=== PATIENT | female | born 1945 | race African-American/Black ===

== ENCOUNTER → 2017-06-29 | Outpatient (CLI) | payer OTHER ==
[~2017-06-29] VITALS: Ht 160 cm; Wt 89.8 kg
[~2017-06-29] MED LIST: ACETAMINOPHEN-1 EAC1 PO; DILTIAZEM HCL120 M1 PO; NABUMETONE 500500 M1 PO; TRIAMTERENE/HCT1 CA1 PO
--- NOTE | ~2017-06-29 | HPC ---
[facility] [address] [address] PAIN MANAGEMENT CONSULTATION Name: FE BLANK Room #: REG TIFF Curry#: [id number] Admission: 06/29/17 Attend Phys: Everardo Edgar DO Discharge: Date of : 45 Report #: [id number] THIS REPORT FOR: //name// CC: Everardo WILLIAM DATE OF SERVICE: 06/29/2017 REFERRING PHYSICIAN: Breanna William M.D. CHIEF COMPLAINT: Axial back pain. HISTORY OF PRESENT ILLNESS: As you know, the patient is a 72-year-old female with long-standing history of axial back pain. The patient indicates pain began in 2012. No inciting injury or trauma. She indicates pain is constant, describes the pain as aching and pounding, places current pain score 4/10, daily average of 5/10, worst pain has been 10/10. The patient has not had any imaging completed. There is no x-ray imaging and no MRI, though it was reported that the patient did have MRI written for, but has not undergone this procedure as she is "worried about the procedure itself". She indicates that she had injections approximately 2 years ago with a pain service out of [employer], who provided what appears to be lumbar epidural injections x 2. She had transient improvement in symptoms. She indicates today pain is exacerbated with lifting and improves with sitting. The pain begins in low back, radiates to the upper buttock area, but not in a dermatomal distribution. She has been referred to our clinic to discuss treatment options for axial back pain. She is receiving Tylenol No. 3 through her primary care and indicates that she is seeing benefit with its use. PAST MEDICAL HISTORY: 1. Hypertension. 2. Diabetes mellitus type 2. 3. Persistent low back pain without radicular symptoms. 4. Osteoarthritis. PAST SURGICAL HISTORY: Hysterectomy. SOCIAL HISTORY: The patient denies tobacco, alcohol, IV or illicit drug use. She is retired, retired years ago. She is not in litigation in regards to pain. She is unaccompanied today. REVIEW OF SYSTEMS: Positive for eye disease, shortness of breath with walking or lying flat, frequent urination, nocturia, low back pain, hypertension and osteoarthritis. All other review of systems negative per 12-point review of systems, other than those listed in the history of present illness. [address] [address] PAIN MANAGEMENT CONSULTATION Name: FE BLANK Room #: REG TIFF Curry#: [id number] Admission: 06/29/17 Attend Phys: Everardo Edgar DO Discharge: Date of : 45 Report #: [id number] Pain impact score 25/70, indicating [id number] interference of daily activities secondary to pain. ALLERGIES: No known drug allergies. CURRENT MEDICATIONS: Triamterene/hydrochlorothiazide 37.5/25 once a day, Breo Ellipta inhaled once a day, diltiazem 120 mg 3 tabs p.o. every day and Tylenol No. 3 one tab p.o. q. 6 hours p.r.n. for pain. IMAGING: No imaging available. PQRS: The patient has known osteoarthritis. No rheumatoid arthritis. She is not a fall risk, has not had a fall in the past 3 months. She is treated for hypertension. She is not on blood thinners. She places pain impact score at a [id number] level. Pain intensity today rated at approximately 4/10. PHYSICAL EXAMINATION: VITAL SIGNS: Blood pressure 152/76, pulse 95 and respiratory rate 20, unlabored. The patient is 100% on room air. Height 5 feet 3 inches tall, weight 198 pounds and BMI calculated at 35.1. GENERAL: Well-developed, well-nourished, well-hydrated, exogenously obese 72-year-old female, appearing her stated age, placing her current pain score 4/10. HEENT: Normocephalic, atraumatic. Pupils equal, round and reactive to light. Extraocular muscles are intact. Sclerae nonicteric. Conjunctivae without injection. NEUROLOGIC: Cranial nerves 2-12 grossly intact. Speech is fluent. The patient deemed a good historian. LUNGS: Clear. No wheezes, rhonchi or rales. CARDIOVASCULAR: Regular. No appreciable gallop or rub. ABDOMEN: Soft, obese, nontender and nondistended. Normoactive bowel sounds. EXTREMITIES: Show no clubbing, no cyanosis, no edema. MUSCULOSKELETAL: There is some palpatory tenderness over the paraspinal musculature of lower lumbar spine. No spinous process tenderness. Lower extremity strength appears equal and symmetrical 5/5. Intact to light touch from L1 through S2 dermatomes. Deep tendon reflexes are symmetrical at patella and Achilles. Ankle clonus negative. Babinski is negative. Seated straight leg raising negative. Supine straight leg raising negative. Clarice test negative. Modified Gaenslen's positive for axial low back pain. Lumbar provocation testing including extension, rotation and lateral flexion all intensify axial back pain. ASSESSMENT: 1. Lumbosacral spondylosis without radicular symptoms. 2. Lumbar degeneration. 3. Myofasc[address] pain. [facility] [address] [place] [address] PAIN MANAGEMENT CONSULTATION Name: FE BLANK Room #: REG TIFF Curry#: [id number] Admission: 06/29/17 Attend Phys: Everardo Edgar DO Discharge: Date of : 45 Report #: [id number] 4. Chronic intractable pain. PLAN: 1. The patient has been referred to our service for evaluation for axial back pain without radiation of symptoms. It does appear the patient is suffering from facet arthropathy of lower lumbar spine. She comes to us today without imaging studies and I recommend evaluation with imaging before moving forward with interventional treatments. We will begin the process of evaluation with x-ray imaging, both AP and lateral, of the lumbar region. We will send the patient for the imaging today. Once the imaging is available, the patient can contact our clinic for the results. We should have the results somewhere by the end of today, 06/29/2017, or early tomorrow, 06/30/2017. The patient can call for those results. We did discuss with the patient that we would recommend MRI of the lumbar spine. This has been written by the primary care team and I do recommend the patient follow up with them in regards to this imaging study. She is nervous about undergoing the procedure and I discussed it with her today. She will consider whether or not she wishes to move forward with this imaging study. 2. We discussed treatment options today for facet arthropathy in the lumbar region. These would include physical therapy, stretching exercise and core strengthening, the goal standard of treatment for arthritic changes. The patient apparently has not been involved in this type of treatment option. We discussed medication management with nonsteroidal anti-inflammatories. We also discussed intra-articular facet injections, medial branch nerve blocks and radiofrequency lesioning. The patient wishes to initiate medication therapy and move forward with intra-articular facet injections. 3. The patient was advised that third democrat payer restrictions will require that authorization be obtained before the patient can undergo facet injections. We will be requesting bilateral L4-L5 and L5-S1 intra-articular facet injections to be performed. We will begin the process of authorization and contact the patient once this has been completed. We will then schedule the patient back for the first in a series of injections. 4. The patient will be started on nabumetone 500 mg dose 1 tab p.o. t.i.d. I have given the patient #90 tablets, 2 refills. I have advised the patient to watch for dyspepsia, worsening of blood pressure or lower extremity edema. If she notes any side effects to medication, discontinue immediately and call for further instructions. The patient was advised to take no other nonsteroidal anti-inflammatories with this medication. We do highly recommend the patient take this medication with meals to decrease the potential of dyspepsia. 5. We will see the patient back in followup visit once we have achieved authorization to undergo bilateral L4-L5 and L5-S1 intra-articular facet injections. At that time, we will review the x-ray imaging with the patient in the possibility of reviewing the MRI if the patient has completed that imaging as well. 6. We wish to thank Dr. William for the referral of this patient to our clinic. We will keep you apprised of her response to treatment as we address what [address] [address] PAIN MANAGEMENT CONSULTATION Name: FE BLANK Room #: REG TIFF Curry#: [id number] Admission: 06/29/17 Attend Phys: Everardo Edgar DO Discharge: Date of : 45 Report #: [id number] appears to be facet arthropathy of the lumbar spine. Again, we wish to thank you for the opportunity to see this patient in consultation. <ELECTRONICALLY SIGNED> By: Everardo Edgar DO 07/12/17 0858 [id number] Everardo Edgar DO /nt
[2017-06-29 09:37] VITALS: BP 152/76
== END ==
LOC: PAIN 07:04
DX: M81.0 Age-related osteoporosis without current pathological fracture (principal); M47.896 Other spondylosis, lumbar region; I10 Essential (primary) hypertension; E11.9 Type 2 diabetes mellitus without complications

== ENCOUNTER 2019-04-12 10:33 | Inpatient (IN) | payer OTHER ==
[~2019-04-12] VITALS: Ht 160 cm; Wt 75.7 kg
[2019-04-12 10:34] VITALS: BP 196/72
--- NOTE | 2019-04-12 10:45 | NUR ---
THE PT'S FAMILY ENTERED THE ED AND WERE DISCUSSING THE PT'S WELLBEING AT HOME WITH THIS RN. THEY WERE TALKING, DAUGHTER YORDY ATTEMPTED TO SIT IN A ROLLING STOOL THAT WAS PLACED IN ROOM 4. SHE WAS SITTING, THE STOOL ROLLED OUT FROM UNDER HER, AND SHE LANDED ON HER BUTTOCKS. THE PT WAS ASSISTED UP AFTER DENYING ANY INJURIES, AND BECAME TEARFUL. SECURITY WAS CALLED TO FILL OUT AN INCIDENT REPORT WELL. THE PT CURRENTLY DENIES ANY INJURIES.
[2019-04-12] MEDS ORDERED: ULTRAM 50MG TAB50 MG PO (10:49)
[2019-04-12] MEDS ORDERED: ATENOLOL 50MG T50 M1 PO (10:49)
[2019-04-12] MEDS ORDERED: ASA81BEC PO (10:49)
[2019-04-12] MEDS ORDERED: LOSARTAN-HCTZ1 EAC3 PO (10:50)
[2019-04-12] MEDS ORDERED: VITAMIN D22000 UNIT PO (10:50)
[2019-04-12 10:57] LABS: URINE BLOOD 2+ (Negative); URINE COLOR YELLOW; URINE GLUCOSE-RANDOM* 1+ (Negative); URINE KETONES TRACE (Negative); URINE NITRITE-REFLEX NEGATIVE (Negative); URINE PROTEIN (DIPSTICK) 3+ (Negative); URINE SPECIFIC GRAVITY 1.025 (1.005-1.035)
[2019-04-12 10:58] LABS: URINE LEUKOCYTES-REFLEX 1+ (Negative)
[2019-04-12 11:00] LABS: URINE BILIRUBIN NEGATIVE (Negative); URINE CLARITY CLOUDY
[2019-04-12 11:01] LABS: ABSOLUTE NEUTROPHILS 7.3 thou/uL (1.4-8.2); BASOPHILS 0.4 % (0.0-2.0); EOSINOPHILS 0.1 % (0.0-3.0); HEMATOCRIT 49.8 % (37.0-47.0); HEMOGLOBIN 16.4 gm/dL (12.0-15.0); ICTOTEST (BILI CONFIRMATORY) Negative (Negative); LYMPHOCYTES 21.2 % (24.0-44.0); MCV 91.1 fL (80.0-100.0); MONOCYTES 4.5 % (1.0-8.0); PLATELET COUNT 210 thou/uL (150-400); POLYS 73.8 % (36.0-66.0); RBC 5.47 mil/uL (4.20-5.00); RDW 15.6 % (10.5-14.5); WBC 9.9 thou/uL (4.0-11.0)
[2019-04-12 11:04] LABS: BACTERIA-REFLEX >30 Many /HPF (None Seen); CASTS None Seen /LPF (None Seen); CRYSTALS None Seen /LPF (None Seen); SQUAMOUS 0-3 Few /LPF (0-3); URINE RBC 3-10 Few /HPF (0-2); URINE WBC-REFLEX >25 Many /HPF (0-5)
[2019-04-12 11:13] LABS: ALBUMIN 2.8 g/dL (3.4-5.0); BUN 18 mg/dL (7-18); CALCIUM 9.2 mg/dL (8.5-10.1); CHLORIDE 96 mmol/L (98-107); CREATININE 1.3 mg/dL (0.6-1.0); DIRECT BILIRUBIN 0.3 mg/dL (<0.1-0.2); GLUCOSE 396 mg/dL (74-106); SGOT 34 U/L (15-37); SGPT 52 U/L (30-65); SODIUM 142 mmol/L (136-145); TOTAL BILIRUBIN 1.2 mg/dL (<0.1-1.0); TOTAL PROTEIN 7.1 g/dL (6.4-8.2)
[2019-04-12 11:15] LABS: POTASSIUM 2.2 mmol/L (3.5-5.1)
[2019-04-12 11:16] LABS: CO2 > 45 mmol/L (21-32)
[2019-04-12 11:41] LABS: BE(vivo) 19.3 mmol/L (-2 to +3); HCO3 45.8 mmol/L (22.0-26.0); PCO2 56.8 mmHg (35.0-45.0); PO2 77.6 mmHg (80.0-100.0); pH 7.524 (7.360-7.450); sO2 96.3 % (92.0-98.0)
[2019-04-12 12:06] LABS: TROPONIN-I 0.1 ng/mL (<0.06)
--- NOTE | 2019-04-12 12:49 | NUR ---
ATTEMPTED REPORT, FLOOR RN TO CALL ER BACK
--- NOTE | 2019-04-12 13:14 | NUR ---
REPORT GIVEN TO ZACHARY ROSS. ECHO AT BEDSIDE, WILL TRANSPORT WHEN DONE
[2019-04-12] MEDS ORDERED: URECHOLINE 25 M25 M2 PO (13:17)
[2019-04-12] MEDS ORDERED: TOPROL XL25 MG PO (13:18)
[2019-04-12] MEDS ORDERED: CRANBERRY 12,61 EACH PO (13:19)
[2019-04-12] MEDS ORDERED: VITAMIN D32000 UNIT PO (13:20)
[2019-04-12] MEDS ORDERED: FISH OIL 1,0001 EAC9 PO (13:20)
[2019-04-12] MEDS ORDERED: LEVOXYL100 MCG PO (13:20)
[2019-04-12] MEDS ORDERED: SUPER B COMPLE1 EAC2 PO (13:21)
[2019-04-12] MEDS ORDERED: FLOMAX0.4 MG PO (13:21)
[2019-04-12] MEDS ORDERED: NORVASC 2.5 MG2.5 M1 PO (13:21)
[2019-04-12] MEDS ORDERED: LEXAPRO5 MG PO (13:22)
[2019-04-12 13:53] VITALS: BP 148/55
--- NOTE | 2019-04-12 14:03 | 2DMMODE ---
[facility] [address] [place] [address] 2 D/M-MODE ECHOCARDIOGRAM Name: FE BLANK Room #: 353-P [facility] IN [facility]#: [id number] Admission: 04/12/19 Attend Phys: Camacho Mclaughlin MD Discharge: Date of : 45 Report #: [id number] THIS REPORT FOR: //name// APPROVED REPORT Study performed: 04/12/2019 13:11:44 EXAM: Comprehensive 2D, Doppler, and color-flow Echocardiogram Patient Location: ER Room #: 3 Status: routine BSA: 2.22 HR: 55 bpm BP: 208/86 mmHg Rhythm: Bradycardia Other Information Study Quality: Adequate Indications Diabetes Hypertension/HDD 2D Dimensions RVDd: 33.70 mm IVSd: 15.10 (7-11mm) LVOT Diam: 17.65 (18-24mm) LVDd: 38.62 mm PWd: 15.27 (7-11mm) Ascending Ao: 23.33 (22-36mm) LVDs: 26.37 (25-40mm) Aortic Root: 25.03 mm IVC: 15.00 mm Volumes Left Atrial Volume (Systole) Single Plane 4CH: 40.09 mL Single Plane 2CH: 30.35 mL LA ESV Index: 18.00 mL/m2 Aortic Valve AoV Peak Stanislav.: 1.58 m/s AO Peak Gr.: 9.95 mmHg LVOT Max P.08 mmHg LVOT Max V: 0.88 m/s EVY Vmax: 1.36 cm2 Mitral Valve E/A Ratio: 0.7 MV Decel. Time: 279.86 ms [facility] [address] [place] [address] 2 D/M-MODE ECHOCARDIOGRAM Name: FE BLANK Room #: 353-P [facility]#: [id number] Admission: 04/12/19 Attend Phys: Camacho Mclaughlin MD Discharge: Date of : 45 Report #: [id number] MV E Max Stanislav.: 0.78 m/s MV A Stanislav.: 1.08 m/s MV PHT: 81.16 ms IVRT: 193.77 ms Pulmonary Valve PV Peak Stanislav.: 0.99 m/s PV Peak Gr.: 3.89 mmHg Pulmonary Vein P Vein S: 0.56 m/s P Vein A: 0.25 m/s P Vein D: 0.38 m/s P Vein A Dur.: 96.9 msec P Vein S/D Ratio: 1.47 Tricuspid Valve TR Peak Stanislav.: 2.73 m/s TR Peak Gr.: 29.77 mmHg PA Pressure: 35.00 mmHg Left Ventricle The left ventricle is normal size. There is normal LV segmental wall motion. Mild concentric left ventricular hypertrophy. The left ventricular systolic function is normal. The left ventricular ejection fraction is within the normal range. LVEF is 55-60%. Grade I - abnormal relaxation pattern. Right Ventricle The right ventricle is normal size. The right ventricular systolic function is normal. Atria The left atrium size is normal. The right atrium size is normal. Aortic Valve The aortic valve is normal in structure. No aortic regurgitation is present. There is no aortic valvular stenosis. Mitral Valve The mitral valve is normal in structure. There is no mitral valve regurgitation noted. No evidence of mitral valve stenosis. Tricuspid Valve The tricuspid valve is normal in structure. There is trace to mild tricuspid regurgitation. Estimated PAP 33 mmHg, Pulmonic Valve [facility] [address] [place] [address] 2 D/M-MODE ECHOCARDIOGRAM Name: FE BLANK Room #: 353-P [facility] IN ..#: [id number] Admission: 04/12/19 Attend Phys: Camacho Mclaughlin MD Discharge: Date of : 45 Report #: [id number] The pulmonary valve is normal in structure. Trace pulmonic regurgitation. Great Vessels The aortic root is normal in size. IVC is normal in size and collapses >50% with inspiration. Pericardium There is no pericardial effusion. <Conclusion> The left ventricle is normal size. Mild concentric left ventricular hypertrophy. The left ventricular systolic function is normal. Grade I - abnormal relaxation pattern. The right ventricle is normal size. The left atrium size is normal. The aortic valve is normal in structure. The mitral valve is normal in structure. There is trace to mild tricuspid regurgitation. Estimated PAP 33 mmHg, <ELECTRONICALLY SIGNED> By: Hilton Garcia MD 04/12/19 140 02 02 Hilton Garcia MD /INF
[2019-04-12] MEDS ORDERED: COZAAR100 MG PO (14:42)
[2019-04-12] MEDS ORDERED: ATENOLOL 100MG100 MG PO (14:43)
[2019-04-12] MEDS ORDERED: ULTRAM50 MG PO (14:45)
[2019-04-12 15:45] VITALS: BP 176/57
--- NOTE | 2019-04-12 17:32 | NUR ---
PATIENT ARRIVED 1400 FROM ED FOR UIT, HYPOXIA, HYPERGLYCEMIA, HYPOKALEMIA, METABOLIC ALKALOSIS, ELEVATED LIVER FUNCTION, ALERT X4 WITH FORGETFULLNESS, CALM, FROM HOME WITH DTR WHO IS BEDSIDE, 2L NASAL CANULA, LOW SLIDING SCALE INSULIN. CONSULT FOR CARDIAC FOR SINUS APRIL, ASSIST X1 USES WALKER AT HOME. STRESS INCONTINENCE WITH BRIEF ON, LAST GM 04/11/19. ADMISSIN ASSESMENT AND HISTORY COMPLETED. ORDERS ACKNOWLEDGE. FALL PRECAUTION IN PLACE.
[2019-04-12 18:53] LABS: BUN 16 mg/dL (7-18); CALCIUM 8.8 mg/dL (8.5-10.1); CHLORIDE 100 mmol/L (98-107); CREATININE 1.1 mg/dL (0.6-1.0); GLUCOSE 317 mg/dL (74-106); SODIUM 142 mmol/L (136-145)
[2019-04-12 19:08] LABS: CO2 > 45 mmol/L (21-32); POTASSIUM 2.9 mmol/L (3.5-5.1)
[2019-04-12 19:48] VITALS: BP 123/105
[2019-04-12 23:58] VITALS: BP 130/69; BP 190/69
[2019-04-13 01:06] LABS: GLYCOHEMOGLOBIN (HGB A1C) 12.6 % (4.8-5.6)
--- NOTE | 2019-04-13 04:23 | NUR ---
ASSUMED PT CARE AROUND 1900. A&OX4, FORGETFUL AT TIMES. PT SLEPT MOST OF THE NIGHT. RESP EVEN AND UNLABORED. NO MAJOR COMPLAINTS THIS SHIFT. INSULIN GIVEN PER SLIDING SCALE. FALL PRECAUTIONS IN PLACE. PROGRESSING TOWARD POC GOALS. WILL CONTINUE TO MONITOR FURTHER.
[2019-04-13 04:35] VITALS: BP 122/53
[2019-04-13 04:35] LABS: ABSOLUTE NEUTROPHILS 7.4 thou/uL (1.4-8.2); BASOPHILS 0.3 % (0.0-2.0); EOSINOPHILS 0.2 % (0.0-3.0); HEMOGLOBIN 14.5 gm/dL (12.0-15.0); LYMPHOCYTES 11.3 % (24.0-44.0); MCH 29.5 pg (26.0-34.0); MCHC 32.2 g/dL (28.0-37.0); MCV 91.6 fL (80.0-100.0); MONOCYTES 5.2 % (1.0-8.0); PLATELET COUNT 189 thou/uL (150-400); RBC 4.91 mil/uL (4.20-5.00); RDW 15.8 % (10.5-14.5); WBC 8.9 thou/uL (4.0-11.0)
[2019-04-13 05:14] LABS: ALBUMIN 2.6 g/dL (3.4-5.0); ANION GAP 2 mmol/L (7-16); BUN 18 mg/dL (7-18); CALCIUM 8.7 mg/dL (8.5-10.1); CHLORIDE 105 mmol/L (98-107); CO2 41 mmol/L (21-32); CREATININE 1.1 mg/dL (0.6-1.0); GLUCOSE 91 mg/dL (74-106); MAGNESIUM 1.9 mg/dL (1.8-2.4); SGOT 37 U/L (15-37); SGPT 53 U/L (30-65); SODIUM 148 mmol/L (136-145); TOTAL PROTEIN 5.9 g/dL (6.4-8.2); TROPONIN-I 0.09 ng/mL (<0.06)
[2019-04-13 05:27] LABS: CHOLESTEROL 222 mg/dL (<200); HDL CHOLESTEROL 65 mg/dL (>40); LDL CHOLESTEROL 128 mg/dL (<100); TC:HDL 3.4 Ratio (Not establshd); TRIGLYCERIDE 148 mg/dL (<150); VLDL 30 mg/dL (<40)
[2019-04-13 05:28] LABS: SERUM ASSESSMENT Clear
[2019-04-13 07:59] VITALS: BP 137/64
--- NOTE | 2019-04-13 08:21 | HC ---
[facility] [place] [address] [place] [address] CONSULTATION Name: FE BLANK Room #: 353-P ADM IN M.R.#: [id number] Admission: 04/12/19 Attend Phys: Camacho Mclaughlin MD Discharge: Date of : 45 Report #: [id number] THIS REPORT FOR: //name// CC: Camacho Cohen MD DATE OF SERVICE: 04/12/2019 CONSULTING PHYSICIAN: Dr. Mclaughlin. REASON FOR CONSULTATION: Severe hyperglycemia, type 2 diabetes mellitus. HISTORY OF PRESENT ILLNESS: This is a very pleasant 73-year-old female patient whose medical background is significant for hypertension, osteoarthritis, who was brought by her daughter today due to significant abnormalities that were found by her primary care physician, Dr. Cohen, yesterday. Subsequently, Dr. Cohen had called the family and instructed them to come to the ER. The patient noted that she had been increasingly weak, fatigued, dehydrated excessively thirsty and urinating often. Incidentally, these labs have identified the patient for the first time to be a diabetic. She has not had this diagnosis in the past. Her daughter believes that she had lost some weight. Again, the patient's medical background is mostly noted for hypertension. Also, I have noted hypothyroidism as a diagnosis in her electronic records and saw that she is taking levothyroxine 100 mcg daily. However, her daughter adamantly denies that the patient has any thyroid issues and is fairly certain that she is not on any levothyroxine at home. REVIEW OF SYSTEMS: CONSTITUTIONAL: Fatigue, tiredness, weight loss, but no fever or chills. HEENT: Negative for sinus pain, ear drainage. PULMONARY: Shortness of breath, cough. No hemoptysis. CARDIAC: Dyspnea on exertion, lower extremity swelling, but not chest pain. GASTROINTESTINAL: Abdominal discomfort, nausea, but no vomiting or significant changes in bowel movement frequency. NEUROLOGY: Negative for loss of consciousness, severe frequent headaches or seizure activity. SKIN: Negative for rash, ulceration, discoloration. PSYCHIATRIC: Negative for delusions, hallucinations. Otherwise, review of systems is noncontributory other than those mentioned in HPI. PAST MEDICAL HISTORY: 1. Hypertension. 2. Neurogenic bladder. 3. Osteoarthritis. [address] [address] CONSULTATION Name: FE BLANK Room #: 353-P [facility] IN M.R.#: [id number] Admission: 04/12/19 Attend Phys: Camacho Mclaughlin MD Discharge: Date of : 45 Report #: [id number] 4. Vitamin D deficiency. 5. Depression. 6. Vague mention of coronary artery disease. 7. New diagnosis of type 2 diabetes mellitus. OUTPATIENT MEDICATIONS: Include aspirin 81 mg daily, bethanechol 25 mg b.i.d., metoprolol 12.5 mg daily, vitamin D3 1000 units daily, ? possible levothyroxine 100 mcg daily, Flomax 0.4 mg daily, amlodipine 2.5 mg daily, escitalopram 2.5 mg daily. ALLERGIES: No known drug allergies. FAMILY HISTORY: Noncontributory. SOCIAL HISTORY: The patient lives alone, usually, but has moved with her daughter 6 weeks ago due to concerns of her gait stability. She denies use of tobacco, alcohol or illicit drugs. She has two daughters. PHYSICAL EXAMINATION: GENERAL: Pleasant elderly -[place] female patient who is not in apparent pain or distress. VITAL SIGNS: Blood pressure is 176/57 mmHg, heart rate is 53 beats per minute, respirations 20 per minute, temperature 36.6 degrees. CONSTITUTIONAL: The patient appears lethargic, but awake, not in apparent pain or distress. HEENT: Anicteric sclerae. Intact extraocular motions. NECK: Supple, without JVD. No appreciable thyromegaly. CHEST: Moderate air entry bilaterally with scattered rales and rhonchi. HEART: Regular rate and rhythm without murmurs or gallops. ABDOMEN: Soft, lax. No guarding, no tenderness, no organomegaly. Active bowel sounds. EXTREMITIES: Lower extremity exam is noted for trace ankle edema bilaterally. No skin breaks, ulcerations or other deformities. Pedal pulses are appreciated. NEUROLOGIC: Awake, alert and oriented to time, place and person. The remainder of her examination is largely nonfocal. PSYCHIATRIC: Pleasant, interactive, appropriate. Normal mood and affect. LABORATORY TESTING: Sodium 142, potassium 2.2, chloride 96, CO2 more than 45, BUN 18, creatinine 1.3, glucose 396, AST 34, total bilirubin 1.2, calcium 9.2, magnesium 2.0, alkaline phosphatase 237, ALT 52, total protein 7.1, albumin 2.8. GFR 49. Lactic acid 1.6. Troponin 0.1. BNP 3182. White blood count 9.9, hemoglobin 16.4, hematocrit 49.8, platelets 210. Hemoglobin A1c was ordered and is pending. ASSESSMENT AND PLAN: 1. Type 2 diabetes mellitus. As noted in HPI, this is a new diagnosis that was [address] [address] CONSULTATION Name: FE BLANK Room #: 353-P [facility] IN Patricio#: [id number] Admission: 04/12/19 Attend Phys: Camacho Mclaughlin MD Discharge: Date of : 45 Report #: [id number] established just yesterday. The one blood glucose value that has been documented here is certainly indicative of that as well at 396 mg/dL. I would like to obtain a hemoglobin A1c to get a better feel for the general glycemic outlook that she has. As we do so, I will establish a low intensity Humalog supplemental scale coverage with a low dose Lantus at 8 units daily. Once glycemic control has been established, I will attempt to make a transition towards an oral regimen that is appropriate for her existing comorbidities. The patient and I had a lengthy discussion about the diagnosis of diabetes mellitus, the pathogenesis of diabetes mellitus, its implications, and the need to establish and maintain adequate glycemic control. Her current kidney function is consistent with stage 3 chronic kidney disease; however, this is the case in the setting of dehydration, I am hopeful to see an improvement in these indices, as we replenish the patient's fluid deficits. 2. Hypothyroidism. Interestingly, the patient has a diagnosis of hypothyroidism noted on her electronic records as well as levothyroxine 100 mcg daily being noted on her medicine list. However, her daughter who is intimately involved in her medical care is fairly certain that neither is correct. I will check a TSH and free T4 to better understand her current thyroid status. 3. Hypertension. The patient has hypertensive urgency or had a hypertensive urgency on presentation. Currently, she is being placed on hydralazine for emergent care and I will defer further antihypertensive therapeutic changes to her primary hospital medicine team. 4. Chronic kidney disease. The patient has kidney function indices that are consistent with stage 3 chronic kidney disease. I am pretty sure that at least some of that is contributed to by her acute fluid shifts and dehydration and would look to monitor this as we get the patient managed for these other issues. 5. Hypokalemia, severe at 2.2. This is being replenished and will continue to be monitored until her stability is ensured. I certainly appreciate this consultation by Dr. Mclaughlin. <ELECTRONICALLY SIGNED> By: Dayami Chaney MD 04/13/19 0821 [id number] Dayami Chaney MD /nt
[2019-04-13 11:33] VITALS: BP 131/58
--- NOTE | 2019-04-13 15:20 | NUR ---
INITIAL ASSESSMENT: Received consult for discharge planning. JOANNA reviewed chart and spoke with nursing and attending physician. Pt was admitted from home due to hypoxia/uncontrolled DM. No weekend discharge planned. JOANNA met with pt at bedside. Introduced role of SW. Pt is alert/orientated x 4. Pt reports she lives at home with her dtr, Albertina. 5 steps to enter the home and 4 steps up to her bedroom. Prior to admission, pt was using a cane/walker to assist with ambulation. Pt states she is currently on service with [facility]. No hx of post-acute placement. Pt's PCP is Dr. Breanna Cohen. JOANNA spoke with pt's dtr, Albertina, via phone to provide update and confirmed info. city planner to contact [facility]. JOANNA is following to assist as needed with discharge planning.
--- NOTE | 2019-04-13 15:31 | NUR ---
DISCHARGE PLANNING. DISCHARGE PLAN IS TO HOME WITH [facility]. PATIENT IS CURRENT WITH THEM. VERIFIED WITH [facility]. NILE TO RESUME PATIENTS HOME HEALTH SERVICES ONCE RESUMPTION DISCHARGE/HOME HEALTH ORDERS RECEIVED. ANTICIPATED DISCHARGE PLANNED FOR THE BEGINNING OF NEXT WEEK. NILE AWARE. UNIT SW AWARE. FOLLOWING.
[2019-04-13 15:34] VITALS: BP 131/58
[2019-04-13 16:21] VITALS: BP 117/52
--- NOTE | 2019-04-13 18:32 | NUR ---
A/O X4. SOB WITH EXERTION. UP WALK TO BATHROOM. SLOWLY TOWARDS POC GOALS.
[2019-04-13 19:28] VITALS: BP 113/60
--- NOTE | 2019-04-13 23:48 | NUR ---
PT RESTING IN BED VISITING UPON ARRIVAL TO SHIFT. O2 PER NC. PT CALLS FOR ASSIST WITH TRANSFERS. [facility] CONTACT AND SMILING WITH INTERACTIONS. REMAINS ON ELECTROLYTE PROTOCOL, 2300 LAB WNP. DISCUSSED HOW HER DM DIAGNOSIS IS NEW.
[2019-04-14 03:32] LABS: HEMATOCRIT 44.2 % (37.0-47.0); HEMOGLOBIN 14.4 gm/dL (12.0-15.0); MCHC 32.5 g/dL (28.0-37.0); MCV 92.1 fL (80.0-100.0); RBC 4.79 mil/uL (4.20-5.00); RDW 16.5 % (10.5-14.5); WBC 9.5 thou/uL (4.0-11.0)
[2019-04-14 03:39] LABS: CALCIUM 8.6 mg/dL (8.5-10.1); CREATININE 1.1 mg/dL (0.6-1.0); POTASSIUM 3.8 mmol/L (3.5-5.1)
[2019-04-14 03:48] VITALS: BP 145/89
[2019-04-14 07:36] VITALS: BP 144/72
[2019-04-14 11:51] VITALS: BP 150/64
[2019-04-14 16:18] VITALS: BP 139/64
--- NOTE | 2019-04-14 17:49 | NUR ---
ASSUMING CARE OF PT AT 0700. PT AOX3 IN NO ACUTE DISTRESS. DYSPNEA WITH ANY ACTIVITY - DIFFICULT TO WEAN. UP TO BSC W/ 1 ASSIST. WILL CONT TO MONITOR.
[2019-04-14 19:35] VITALS: BP 130/66
--- NOTE | 2019-04-14 23:58 | NUR ---
PT RESTING IN BED VISITING WITH FAMILY UPON ARRIVAL TO SHIFT. PT TEARFUL INTERMITTENTLY WHILE TALKING WITH FAMILY AND ON PHONE. PT HAS [facility] CONTACT AND APPROPRIATE FACIAL EXPRESSIONS WITH CONVERSATION. PT CONTINUES TO ATTTEMPT TO GET OUT OF BED WITHOUT CALLING FOR ASSISTANCE. SBA WITH WALKER TO BSC. PT IS VERY SOA WITH EXERTION, O2 PER NC REMAINS 2L. PROVIDED HS SNACK. PT PULLED OUT RAC PERIPHERAL IV, LAC REMAINS.
--- NOTE | 2019-04-15 01:09 | NUR ---
PT AWAKENED TEARFUL ATTEMPTING TO GET OUT OF BED STATING SHE NEEDED TO GET OUT OF HERE. PT WAS ABLE TO STATE NAME AND LOCATION OF HOSPITAL. PT ATTEMPTING TO PULL OFF HER TELE AND WAS REFUSING TO PUT ON O2. PT EVENTUALLY DE ESCALATED CRIED INTO HER PILLOW AND THEN RELAXED. JADENMargarita CALLED DAUGHTER AND HAD PT TALK WITH DAUGHTER. PT AFTER CONVERSATION WAS CALM, COMPLIANT AND AGREED TO WATCH TV. BED ALARM REMAINS ON.
[2019-04-15 04:15] VITALS: BP 147/70
--- NOTE | 2019-04-15 05:35 | NUR ---
pt pulled out her iv. pt crying in chair, stating she wants to go home. states at this time she lives with her daughters.
[2019-04-15 08:10] VITALS: BP 167/100
[2019-04-15 11:18] VITALS: BP 144/75
[2019-04-15 15:35] VITALS: BP 143/64
--- NOTE | 2019-04-15 18:05 | NUR ---
patient a/o x4. pleasant. sob with exertion. generlized weakness. slowly towards poc goals.
[2019-04-15 19:25] VITALS: BP 158/68
--- NOTE | 2019-04-15 23:45 | NUR ---
Patient woke up disoriented, tearful, states she wants to speak with her daughter Beryl. Oriented to person place and situation but somehow thinks the hospital in closing down and wants someone to pick her up. Spoke with daughter Beryl who helped reorient and calm patient down.
[2019-04-16 04:48] VITALS: BP 127/67
[2019-04-16 05:56] LABS: CALCIUM 8.9 mg/dL (8.5-10.1); CREATININE 1.2 mg/dL (0.6-1.0); POTASSIUM 3.7 mmol/L (3.5-5.1)
[2019-04-16 07:54] VITALS: BP 140/74
[2019-04-16 08:38] LABS: HEMATOCRIT 43.4 % (37.0-47.0); HEMOGLOBIN 13.7 gm/dL (12.0-15.0); MCH 29.4 pg (26.0-34.0); MCHC 31.5 g/dL (28.0-37.0); MCV 93.1 fL (80.0-100.0); RBC 4.66 mil/uL (4.20-5.00); RDW 16.4 % (10.5-14.5); WBC 9.5 thou/uL (4.0-11.0)
[2019-04-16 11:23] VITALS: BP 151/55
--- NOTE | 2019-04-16 12:11 | NUR ---
PATIENT TO NUCLEAR MED FOR NECULAR STRESS TEST VIA W/C AT 1130. PATIENT ALERT AND UP IN THE CHAIR THIS AM
--- NOTE | 2019-04-16 12:52 | EKG ---
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 : 1945 Requested By: William Anaya Order Number: [id number] MD: Merlin Garcia Measurements Intervals [place] Rate: 57 P: 42 VT: 117 QRS: -36 QRSD: 116 T: 163 QT: 474 QTc: 462 Interpretive Statements Sinus rhythm Borderline short VT interval Probable left atrial enlargement LVH with IVCD, LAD and secondary repol abnrm No previous ECG available for comparison Electronically Signed On 04-16-2019 12:52:22 UNDERTAKER HELPER by Merlin Garcia [email or web address] <ELECTRONICALLY SIGNED> By: Merlin Garcia MD 04/16/19 1252 03 03 Merlin Garcia MD /MARVIN
--- NOTE | 2019-04-16 12:59 | EKG ---
[place] [address] [facility] [place] [address] ELECTROCARDIOGRAM REPORT Name: FE BLANK Room #: 353-P ADM IN M.R.#: [id number] Admission: 04/12/19 Attend Phys: Camacho Mclaughlin MD Discharge: Date of : 45 Report #: [id number] THIS REPORT FOR: //name// [facility] Test Date: 2019-04-12 Test Time: 17:55:12 Pat Name: FE BLANK Department: Room: 353 P Gender: F Bass Singer: Brenna TREVIZO : 1945 Requested By: Susanna Reyes Order Number: [id number] MD: Merlin Garcia Measurements Intervals [place] Rate: 53 P: 24 PA: 121 QRS: -30 QRSD: 105 T: 218 QT: 500 QTc: 470 Interpretive Statements Sinus rhythm LVH with secondary repolarization abnormality Anterior Q waves, possibly due to LVH Baseline wander in lead(s) V2 No previous ECG available for comparison Electronically Signed On 04-16-2019 12:58:33 EXAMINER RATING CLERK by Merlin Garcia [email or web address] <ELECTRONICALLY SIGNED> By: Merlin Garcia MD 04/16/19 1258 1755 1755 Merlin Garcia MD /EPI
--- NOTE | 2019-04-16 15:03 | NUR ---
SW reviewed chart and spoke with nursing and attending physician. Pt to have stress test today. Plan is for pt to discharge home and resume HH services through [facility]. Contact info for [facility] placed in pt's discharge summary. Awaiting final discharge orders/summary. JOANNA is following to assist as needed with discharge planning. [facility]--
[2019-04-16 15:43] VITALS: BP 142/74
--- NOTE | 2019-04-16 15:47 | EKG ---
[address] [place] [address] ELECTROCARDIOGRAM REPORT Name: FE BLANK Room #: 353-P ADM IN M.R.#: [id number] Admission: 04/12/19 Attend Phys: Camacho Mclaughlin MD Discharge: Date of : 45 Report #: [id number] THIS REPORT FOR: //name// [facility] Test Date: 2019-04-13 Test Time: 09:22:02 Pat Name: FE BLANK Department: Room: 353 P Gender: F Hand Umbrella Tipper: Richard MENDOZA : 1945 Requested By: Susanna Reyes Order Number: [id number] MD: Merlin Garcia Measurements Intervals [place] Rate: 74 P: 34 [place]: 117 QRS: -33 QRSD: 102 T: 161 QT: 435 QTc: 483 Interpretive Statements Sinus rhythm Borderline short [place] interval LVH with secondary repolarization abnormality No previous ECG available for comparison Electronically Signed On 04-16-2019 15:47:30 HARDBOARD GRINDER by Merlin Garcia [email or web address] <ELECTRONICALLY SIGNED> By: Merlin Garcia MD 04/16/19 1547 1 1 Merlin Garcia MD /MARVIN
--- NOTE | 2019-04-16 18:36 | NUR ---
PATIENT PROGRESSING TOWARDS OUTCOME GOALS O2 IS WEANED OFF AND DENIES CHEST PAIN TODAY. NUCLEAR STRESS TEST COMPLETED. SCANT AMOUNT OF BLOOD NOTED IN STOOL AFTER STRESS TEST. DR SALINAS AWARE.
[2019-04-16 19:12] VITALS: BP 132/76
--- NOTE | 2019-04-16 21:55 | NUR ---
Patient was able to ambulate with the walker to the bed side commode with standby assistance. Juanita struggled getting her feet back in the bed. Nursing will continue to monitor.
[2019-04-17] VITALS (13 sets, daily range): BP systolic 141–170; BP diastolic 70–89
--- NOTE | 2019-04-17 00:18 | NUR ---
Patient refused her midnight assessment. She stated no one has done it before and it is not necessary. Nursing will continue to monitor.
--- NOTE | 2019-04-17 11:57 | NUR ---
SW reviewed chart and spoke with nursing and attending physician. Pt to have cardiac cath today. Plan is for pt to discharge home and resume services through [facility] when medically stable. Final discharge orders/summary will need to be faxed to HH when available. SW is available to assist should needs arise. [facility]--
--- NOTE | 2019-04-17 20:15 | NUR ---
ASSUMMED PT CARE AT APPROXIMATELY 1500. PT A&O X4. ASSESSMENT CHARTED. FALL PRECAUTIONS IN PLACE. PT DENIES HAVING CHEST PAIN. PT DENIES HAVING SOB. PT DENIES HAVING ACUTE PAIN. PT POST CATH, NO INTERVENTIONS. PT R GROIN C/D/I. NO HEMATOMA. PT BP ELEVATED IN EVENING. NOTIFIED DR. BRAD PEREZ ORDERED BP MEDS. BP MEDS GIVEN. BP DECREASED. VITAL SIGNS STABLE. BLOOD SUGARS STABLE. PT HAD RUNS OF SVT WHEN AMBULATING TO BATHROOM. PT ASYMPTOMATIC. NOTIFIED DR. PIZARRO. ADDED NEW ORDERS. NEW ORDERS IMPLEMENTED. RHYTHM STABLE. PT AMBULATES STEADY C X1 ASSIST C WALKER. BED REST COMPLETE. POST-CATH VITAL SIGNS COMPLETE. PT AND PT'S FAMILY EDUCATED ABOUT POC. PT AND PT'S FAMILY STATED UNDERSTANDING AND DENIED HAVING FURTHER QUESTIONS. PT COMFORTABLE IN BED. PT DENIES HAVING FURTHER CONCERNS.
[2019-04-18 00:35] VITALS: BP 147/74
--- NOTE | 2019-04-18 04:08 | NUR ---
PT ALERT AND ORIENTED. DENIES C/P, OR ANY KIND OF PAIN. NO N/V/D REPORTED. PT S/P CARDIAC CATH YESTERDAY, RIGHT GROIN SITE C/D/I. VITALS STABLE, BP MUCH BETTER CONTROLLED COMPARED FROM PREVIOUS. PT DIABETIC WITH LOW DOSE SLIDING SCALE. REMAINED SR ON THR MONITOR, NO EPISODES OF SVT. NO FURTHER CONCERNS REPORTED. WILL CONTINUE TO FOLLOW POC.
[2019-04-18 04:45] VITALS: BP 177/81
[2019-04-18 05:40] LABS: HEMATOCRIT 42.3 % (37.0-47.0); HEMOGLOBIN 13.7 gm/dL (12.0-15.0); MCH 29.8 pg (26.0-34.0); MCHC 32.4 g/dL (28.0-37.0); MCV 91.9 fL (80.0-100.0); RBC 4.6 mil/uL (4.20-5.00); RDW 16.3 % (10.5-14.5); WBC 9.4 thou/uL (4.0-11.0)
[2019-04-18 05:53] LABS: CALCIUM 8.4 mg/dL (8.5-10.1); CREATININE 1.1 mg/dL (0.6-1.0); POTASSIUM 3.4 mmol/L (3.5-5.1)
[2019-04-18 07:32] VITALS: BP 155/56
[2019-04-18] MEDS ORDERED: LIPITOR40 MG PO (09:00)
[2019-04-18] MEDS ORDERED: BENICAR40 MG PO (09:01)
[2019-04-18] MEDS ORDERED: GLUCOPHAGE XR750 MG PO (09:01)
[2019-04-18] MEDS ORDERED: NIFEDIPINE ER30 M1 PO (09:01)
[2019-04-18] MEDS ORDERED: TRADJENTA5 MG PO (09:02)
[2019-04-18 10:40] VITALS: BP 131/58
--- NOTE | 2019-04-18 12:17 | NUR ---
PT CARE ASSUMED APPROX 0700. ASSESSMENT CHARTED. DENIES PAIN AND SOA EVEN WITH EXERTION. VSS. BS WNL. PT DISCHARGED AT THIS TIME. DISCHARGE EDUCATION DONE WITH PT AND HER DAUGHTER. BOTH DENY QUESTIONS AND CONCERNS REGARDING DISCHARGE EDUCATION AND POST HOSPITAL CARES. IV OUT, TELE BOX OFF. PT ESCORTED OUT VIA WHEELCHAIR APPROX 1110.
== END 2019-04-18 11:11 | disposition home health service (06) | DRG 637 ==
LOC: ER 10:33 → EROBS 12:27 → 3W 12:27 → 2N 04-17 14:58
PROVIDERS: Emergency Medicine; Internal Medicine; Nurse Practitioner; Nurse Practitioner Adult Health; ADMIT Hospitalist
DX: E11.65 Type 2 diabetes mellitus with hyperglycemia (principal); E43 Unspecified severe protein-calorie malnutrition; G93.41 Metabolic encephalopathy; J96.91 Respiratory failure, unspecified with hypoxia; N39.0 Urinary tract infection, site not specified; I47.1 Supraventricular tachycardia; N17.9 Acute kidney failure, unspecified; E87.6 Hypokalemia; E26.01 Conn's syndrome; E11.22 Type 2 diabetes mellitus with diabetic chronic kidney disease; I16.0 Hypertensive urgency; M19.90 Unspecified osteoarthritis, unspecified site; R26.9 Unspecified abnormalities of gait and mobility; M81.0 Age-related osteoporosis without current pathological fracture; R79.89 Other specified abnormal findings of blood chemistry; R00.1 Bradycardia, unspecified; E86.0 Dehydration; F32.9 Major depressive disorder, single episode, unspecified; E03.9 Hypothyroidism, unspecified; I12.9 Hypertensive chronic kidney disease with stage 1 through stage 4 chronic kidney disease, or unspecified chronic kidney disease; N18.9 Chronic kidney disease, unspecified; E78.5 Hyperlipidemia, unspecified; E27.9 Disorder of adrenal gland, unspecified; Z82.49 Family history of ischemic heart disease and other diseases of the circulatory system; Z90.710 Acquired absence of both cervix and uterus; Z68.29 Body mass index [BMI] 29.0-29.9, adult; Z79.82 Long term (current) use of aspirin; Z79.899 Other long term (current) drug therapy; D35.00 Benign neoplasm of unspecified adrenal gland
CPT/HCPCS: 10081; 10879

== ENCOUNTER 2019-04-25 21:34 | Inpatient (IN) | payer OTHER ==
[~2019-04-25] VITALS: Ht 160 cm; Wt 80.1 kg
--- NOTE | ~2019-04-25 | HC ---
[facility] [place] [address] CONSULTATION Name: FE BLANK Room #: 214-P ADM IN .R.#: [id number] Admission: 04/26/19 Attend Phys: Franko Elmore MD Discharge: Date of : 45 Report #: [id number] THIS REPORT FOR: //name// CC: RONEL physician/PCP Franko Elmore DATE OF SERVICE: 04/30/2019 HISTORY OF PRESENT ILLNESS: The patient is a 73-year-old -Moroc[place] female, newly-diagnosed diabetes mellitus, admitted with decreased blood sugar, lethargy, problems awakening. Blood sugar was noted to be low. She was diagnosed with acute hypoxic respiratory failure secondary to COPD exacerbation along with hypertensive urgency and pneumonia. She also was diagnosed with cholelithiasis, but she has declined surgery. She does have exogenous obesity. The patient is being seen in Rehabilitation Medicine consultation. Her pneumonia was noted to be improving. PAST MEDICAL HISTORY: Includes diabetes mellitus type 2, hypertension, osteoporosis. She has had a prior cardiac catheterization, obesity, bilateral adrenal masses. MEDICATIONS: Please see the full medication listing. HABITS: Past tobacco abuse, quit greater than a year ago. SOCIAL HISTORY: Lives with her daughter, split-level house, 6 steps in. She can avoid the stairs. Premorbid gait was with a front-wheeled walker. Daughter herself is on O2 and has a left foot brace. REVIEW OF SYSTEMS: No current complaints of chest pain, shortness of breath or abdominal discomfort. The patient notes she is feeling better. PHYSICAL EXAMINATION: GENERAL: A 73-year-old overweight, -Moroccan female, in no obvious distress. VITAL SIGNS: Last recorded temperature 98.7, pulse 62, respirations 18, and blood pressure 148/69. NEUROLOGIC: She is alert, appears appropriate. Facies are symmetric. Defer some answers to her daughter. She does have decreased bilateral shoulder abduction and apparently has some prior shoulder issues premorbidly. Elbow, wrist and hand strength is probably grade 4-/5. DTRs are trace to 1. Lower extremities, no focal calf swelling. Functional range of motion, strength is grade 4-/5. Her last recorded therapy note is from 04/27/2019 in which she was min assist sit to stand. Gait was 40 feet min assist with a front-wheeled walker. She did just get back from physical therapy today and both she and her daughter noted that she is doing even better. [address] [address] CONSULTATION Name: FE BLANK Room #: 214-P [facility] IN ..#: [id number] Admission: 04/26/19 Attend Phys: Franko Elmore MD Discharge: Date of : 45 Report #: [id number] ASSESSMENT: A 73-year-old -Moroccan female with the following problem list: 1. Initial mental status changes/hypoglycemia/lethargy. 2. Hypertensive urgency. 3. Acute hypoxemic respiratory failure. 4. Acute exacerbation of chronic obstructive pulmonary disease. 5. Pneumonia, improving. 6. Cholelithiasis, possible mild cholecystitis, declining surgical intervention. 7. Diabetes mellitus type 2, recently undiagnosed. 8. Hypertension. 9. Hyperlipidemia. 10. Obesity. 11. Osteoporosis. 12. Bilateral adrenal masses. 13. Degenerative arthritis. PLAN: Physical therapy has seen her and their recommendation was for home health care. Discussed with the patient and daughter and the daughter is comfortable with the patient returning back to the home setting with home healthcare coming out including nursing and therapies when she has been medically cleared for discharge. I have not seen today's physical therapy, noted self, but she was noted to do even better than prior and the daughter is feeling comfortable as far as the discharge plan with home health care. At this point, we would recommend home with home health care as current recommendation and we will follow along with you. Thank you for asking us to assist in this patient's care. By: [id number] Jesus Cuevas MD /[facility]
[~2019-04-25 21:34] MED LIST changes: +ASA81BEC PO; +ATENOLOL 100MG100 MG PO; +ATENOLOL 50MG T50 M1 PO; +BENICAR40 MG PO; +COZAAR100 MG PO; +CRANBERRY 12,61 EACH PO; +FISH OIL 1,0001 EAC9 PO; +FLOMAX0.4 MG PO; +GLUCOPHAGE XR750 MG PO; +LEVOXYL100 MCG PO; +LEXAPRO5 MG PO; +LIPITOR40 MG PO; +LOSARTAN-HCTZ1 EAC3 PO; +NIFEDIPINE ER30 M1 PO; +NORVASC 2.5 MG2.5 M1 PO; +SUPER B COMPLE1 EAC2 PO; +TOPROL XL25 MG PO; +TRADJENTA5 MG PO; +ULTRAM 50MG TAB50 MG PO; +ULTRAM50 MG PO; +URECHOLINE 25 M25 M2 PO; +VITAMIN D22000 UNIT PO; +VITAMIN D32000 UNIT PO
[2019-04-25 21:35] VITALS: BP 157/97
[2019-04-25] MEDS ORDERED: NORVASC 2.5 MG2.5 M1 PO (22:11)
[2019-04-25] MEDS ORDERED: DIOVAN160 MG PO (22:12)
[2019-04-25] MEDS ORDERED: GLIMEPIRIDE4 MG PO (22:12)
[2019-04-25] MEDS ORDERED: KLOR-CON M2020 MEQ PO (22:14)
[2019-04-25] MEDS ORDERED: FOSAMAX 70 MG T70 MG PO (22:14)
--- NOTE | 2019-04-25 23:25 | NUR ---
PT GIVEN FOOD PER DR HUTCHINSON
[2019-04-26] VITALS (7 sets, daily range): BP systolic 142–180; BP diastolic 69–94
--- NOTE | 2019-04-26 00:33 | NUR ---
PT'S BLOOD SUGAR READ LOW, D-50 WAS GIVEN AT THIS TIME. THE PT ATE HALF THE FOOD PROVIDED.
[2019-04-26 01:24] LABS: HEMOGLOBIN 13.3 gm/dL (12.0-15.0); MCH 30.3 pg (26.0-34.0); MCHC 32.3 g/dL (28.0-37.0); MCV 93.7 fL (80.0-100.0); PLATELET COUNT 128 thou/uL (150-400); RBC 4.38 mil/uL (4.20-5.00); RDW 16.2 % (10.5-14.5); WBC 10.3 thou/uL (4.0-11.0)
[2019-04-26 01:25] LABS: ANION GAP 11 mmol/L (7-16); BUN 23 mg/dL (7-18); CALCIUM 7.8 mg/dL (8.5-10.1); CHLORIDE 112 mmol/L (98-107); CO2 25 mmol/L (21-32); CREATININE 0.8 mg/dL (0.6-1.0); GLUCOSE 43 mg/dL (74-106); POTASSIUM 3.3 mmol/L (3.5-5.1); SODIUM 148 mmol/L (136-145)
[2019-04-26 01:31] LABS: ALBUMIN 2.5 g/dL (3.4-5.0); DIRECT BILIRUBIN < 0.1 mg/dL (<0.1-0.2); SGOT 69 U/L (15-37); SGPT 70 U/L (30-65); TOTAL BILIRUBIN 0.4 mg/dL (<0.1-1.0); TOTAL PROTEIN 6.2 g/dL (6.4-8.2)
[2019-04-26 02:18] LABS: ABSOLUTE NEUTROPHILS 8.9 thou/uL (1.4-8.2); NUCLEATED RBCS 3 /100WBC
[2019-04-26 02:20] LABS: ANISOCYTOSIS 1+; PLATELET ESTIMATE DECREASED; POIKILOCYTOSIS 1+
[2019-04-26 02:35] LABS: URINE BILIRUBIN NEGATIVE (Negative); URINE BLOOD TRACE (Negative); URINE CLARITY CLEAR; URINE COLOR YELLOW; URINE GLUCOSE-RANDOM* TRACE (Negative); URINE KETONES NEGATIVE (Negative); URINE LEUKOCYTES-REFLEX NEGATIVE (Negative); URINE NITRITE-REFLEX NEGATIVE (Negative); URINE PROTEIN (DIPSTICK) 2+ (Negative); URINE SPECIFIC GRAVITY 1.015 (1.005-1.035); URINE UROBILINOGEN 0.2 E.U./dl (0.2-1.0)
[2019-04-26 02:54] LABS: BACTERIA-REFLEX 1-9 Few /HPF (None Seen); CASTS None Seen /LPF (None Seen); CRYSTALS None Seen /LPF (None Seen); MUCUS 4-6 Moderate strn/LPF (None Seen); SQUAMOUS 4-10 Moderate /LPF (0-3); URINE RBC 0-2 Rare /HPF (0-2); URINE WBC-REFLEX 0-5 Rare /HPF (0-5)
--- NOTE | 2019-04-26 07:30 | NUR ---
PT, NEW ADMIT, ARRIVED ON UNIT AT ABOUT 0400. FAMILY AT BEDSIDE. PATIENT ALERT AND ORIENTED BUT LETHERGIC ON ARRIVAL. BG WAS 73 AT THIS TIME. GIVEN 120 MLS OF APPLE JUICE. PRELIMINARY SCHOOL PSYCHOLOGIST SHILPA NOTIFIED. ORDERS FOR D10 AT 100 MLS/HR GIVEN. RECHECKED BG 1HR LATER, BG 25 AND 24 ON REPEAT. PRELIMINARY SCHOOL PSYCHOLOGIST NOTIFIED. IV D50 GIVEN, ALONE WITH APPLE JUICE. RECHECK BG WAS 169 AFTER 30 MINS AND 116 AFTER ANOTHER 30 MINUTES AT 0630. PT ALSO HAS DIARRHEA AND REPORTED NAUSEA WITH NO EMESIS . PT WAS ALSO WHEEZY WITH LABORED BREATHING, 02 2L NC FO COMFORT INITIATED.ALL OTHER ADMISSION ASSESSMENTS COMPLETE. CONSENTS SIGNED. REPORTED GIVEN TO ON COMING NURSE. WILL CONTINUE WITH HYPOGLYCEMIA PROTOCOL.
[2019-04-26 09:13] LABS: ABSOLUTE NEUTROPHILS 10.4 thou/uL (1.4-8.2); BASOPHILS 0.3 % (0.0-2.0); EOSINOPHILS 0.2 % (0.0-3.0); HEMATOCRIT 42.5 % (37.0-47.0); HEMOGLOBIN 13.7 gm/dL (12.0-15.0); LYMPHOCYTES 9.4 % (24.0-44.0); MCH 29.7 pg (26.0-34.0); MCHC 32.3 g/dL (28.0-37.0); MCV 92.2 fL (80.0-100.0); MONOCYTES 3.2 % (1.0-8.0); POLYS 86.9 % (36.0-66.0); RBC 4.62 mil/uL (4.20-5.00); RDW 16.2 % (10.5-14.5); WBC 11.9 thou/uL (4.0-11.0)
[2019-04-26 09:17] LABS: PLATELET COUNT 222 thou/uL (150-400)
[2019-04-26 09:22] LABS: CREATININE 0.9 mg/dL (0.6-1.0); POTASSIUM 3.3 mmol/L (3.5-5.1)
[2019-04-26 13:51] LABS: MAGNESIUM 1.3 mg/dL (1.8-2.4); PHOSPHORUS 2.1 mg/dL (2.5-4.9)
--- NOTE | 2019-04-26 14:21 | NUR ---
Case opened to follow for dc planning. Pt known to cm from recent admission a couple of weeks ago. She has newly dx DM with A1C of 12. Dtrs Albertina and Tri are here at bedside and help care for the pt at home. They indicate that [facility] has been seeing the pt. They did not get a blood glucose machine for the pt but will get one at [place]. Recommendations provided. The pt's pcp is Dr. Cosme Peng. Dtr Albertina lives with the pt. Both dtr seem interested in more education to help manage pt's blood sugars. The pt has 5 steps to enter her home and 4 up to the bedroom. She uses a rwalker for gait. [facility] contacted and they can accept for readmission at [facility]. PT/OT evals are pending. Will follow along and resume her hh services at [facility].
--- NOTE | 2019-04-26 16:38 | NUR ---
pt is A&OX3, RN has reported to about pt's abnormal LAB results and pt has liquid stool, new order received, pt 's stool has sent to check c-diff , low k+ and mag++ have replacement , pt is continuing IV D 10 @ 100ML/HR, PT'S BS keep is stable at 97-135, pt has started IV ABX, pt feel better, pt's family stay at pt's bedside, RN has updated pt's information.
--- NOTE | 2019-04-26 18:11 | NUR ---
Endocrinology has seeing the pt, new order received, pt's BS will check pt's BS q2hr, pt 's BS is 104 at 1700pm, pt starts eating now, pt's IV D 10 has changed to 50ml/hr, RN will reported to next shift to keep eye on pt.
[2019-04-27] VITALS (8 sets, daily range): BP systolic 122–172; BP diastolic 65–83
[2019-04-27 05:02] LABS: ABSOLUTE NEUTROPHILS 15.1 thou/uL (1.4-8.2); BASOPHILS 0.3 % (0.0-2.0); CALCIUM 8.2 mg/dL (8.5-10.1); CREATININE 1.2 mg/dL (0.6-1.0); EOSINOPHILS 0.5 % (0.0-3.0); HEMATOCRIT 38.2 % (37.0-47.0); HEMOGLOBIN 12.2 gm/dL (12.0-15.0); LYMPHOCYTES 6.5 % (24.0-44.0); MAGNESIUM 1.8 mg/dL (1.8-2.4); MCH 29.6 pg (26.0-34.0); MCHC 31.9 g/dL (28.0-37.0); MONOCYTES 2.5 % (1.0-8.0); PHOSPHORUS 2.8 mg/dL (2.5-4.9); PLATELET COUNT 193 thou/uL (150-400); POLYS 90.2 % (36.0-66.0); RBC 4.11 mil/uL (4.20-5.00); RDW 16.3 % (10.5-14.5); WBC 16.8 thou/uL (4.0-11.0)
[2019-04-27 05:18] LABS: POTASSIUM 5.2 mmol/L (3.5-5.1)
--- NOTE | 2019-04-27 08:20 | NUR ---
ASSSUMED AT 1900. PT ALERT AND ORIENTED. ONE EPISODE OF DIARRHEA THIS MORNING. DENIES PAIN. VSS. BG SUGAR MORE STABLE OVER NIGHT. D10 DC'd. WILL CONTINUE WITH Q4 BLOOD SUGAR CHECKS. NO FURTHER CONCERNS THIS MORNING. WILL CONTINUE TO FOLLOW POC.
--- NOTE | 2019-04-27 12:07 | HC ---
[facility] [place] [address] CONSULTATION Name: FE BLANK Room #: 214-P ADM IN M.R.#: [id number] Admission: 04/26/19 Attend Phys: Franko Elmore MD Discharge: Date of : 45 Report #: [id number] THIS REPORT FOR: //name// CC: [facility] physician/PCP Franko Cohen MD DATE OF SERVICE: 04/26/2019 CONSULTING PHYSICIAN: Dr. Perez. REASON FOR CONSULTATION: Hypoglycemia, type 2 diabetes mellitus. HISTORY OF PRESENT ILLNESS: This is a pleasant 73-year-old female patient whose medical background is significant for a recent admission that brought on a new diagnosis of type 2 diabetes mellitus. About a week ago or so, the patient was discharged from the hospital on a combination of metformin and Tradjenta for the new diagnosis of diabetes mellitus. However, the patient found that Tradjenta was too expensive for her with the copay of $67, so she asked her primary care physician for an alternative and she was prescribed glimepiride 4 mg daily instead. The patient has not monitored her blood glucose at home because she still does not possess a blood glucose meter. That said, the patient was noted by her daughter to have behavioral changes look fatigued, tired, and lazy and that prompted her to call the EMS yesterday who upon arrival found the patient to have severe hypoglycemia and responded to that appropriately and brought her to the ER where she was admitted for further care and monitoring. Also, during the patient's recent admission, she was found to have adrenal masses that were deemed to be benign, judging by their morphologic outlook. REVIEW OF SYSTEMS: CONSTITUTIONAL: Noted for fatigue, tiredness, no fever or chills or changes in body weight. HEENT: Negative for sinus pain, sinus congestion, or ear drainage. PULMONARY: Noted for occasional shortness of breath and cough, but no hemoptysis. CARDIAC: Negative for syncope or presyncope, chest pain or palpitations noted for leg edema. GASTROINTESTINAL: Noted for abdominal distention, abdominal discomfort, nausea, but no vomiting. NEUROLOGY: Noted for occasional dizziness, lightheadedness, peripheral numbness, but not loss of consciousness or seizure activity. PSYCHIATRIC: Negative for rash, ulceration or other major changes. Otherwise, review of systems is noncontributory other than those mentioned in HPI. PAST MEDICAL HISTORY: [address] [address] CONSULTATION Name: FE BLANK Room #: 214-P [facility] IN M.R.#: [id number] Admission: 04/26/19 Attend Phys: Franko Elmore MD Discharge: Date of : 45 Report #: [id number] 1. New diagnosis of type 2 diabetes mellitus. Baseline hemoglobin A1c 12.6%. 2. Bilateral adrenal masses. 3. Hyperlipidemia. 4. Hypertension. 5. Osteoporosis. 6. Obesity. PAST SURGICAL HISTORY: Hysterectomy. OUTPATIENT MEDICATIONS: Atenolol 50 mg daily, aspirin 81 mg daily, amlodipine 5 mg daily, glimepiride 4 mg daily, metformin 750 mg b.i.d., valsartan 160 mg daily, alendronate 70 mg weekly, Klor-Con 1 tab daily, vitamin D 1000 units daily. ALLERGIES: No known drug allergies. FAMILY HISTORY: Noncontributory. SOCIAL HISTORY: She lives with her daughter. She denies use of tobacco, alcohol, or illicit drugs. PHYSICAL EXAMINATION: GENERAL: This is a pleasant -Guyanese female patient who is not in apparent pain or distress. VITAL SIGNS: Blood pressure is 148/72 mmHg, heart rate is 96 beats per minute, respirations 18 per minute, temperature of 36.6 degrees Celsius. CONSTITUTIONAL: The patient is lying in bed comfortably, not in apparent pain or distress. HEENT: Anicteric sclerae. Intact extraocular motions. Neck is supple, without JVD, carotid bruits or lymphadenopathy. I do not appreciate thyromegaly. CHEST: Noted for moderate air entry bilaterally with scattered rales, rhonchi. HEART: Regular rate and rhythm without murmurs or gallops. ABDOMEN: Soft and lax without tenderness or organomegaly. She has active bowel sounds. EXTREMITIES: Lower extremity exam is noted for trace ankle edema bilaterally. SKIN: No skin breaks, ulcerations. NEUROLOGIC: Awake, alert and oriented to time, place and person. The remainder of her examination is nonfocal NEUROLOGIC: Awake. PSYCHIATRY: Psychologically, appropriate, interactive. Normal mood and affect. LABORATORY DATA: On arrival, the patient had blood glucose that was documented as less than 20 and recurrent episodes of hypoglycemia occurred after midnight, earlier today at 32, 25, and 33. Since then, the patient had sustained her blood glucose above 90 mg/dL, but with the support of D10 at 125 mL an hour. Sodium 148, potassium 3.3, chloride 108, CO2 of 31, anion gap 9, BUN 18, [address] [address] CONSULTATION Name: FE BLANK Room #: 214-P ADM IN M.R.#: [id number] Admission: 04/26/19 Attend Phys: Franko Elmore MD Discharge: Date of : 45 Report #: [id number] creatinine 0.9, osmolarity 308, AST 69, total bilirubin 0.4, calcium 9.0, phosphorus 2.1, magnesium 1.3, alkaline phosphatase 279, ALT 70, albumin 2.5, EGFR 74. Lactic acid 1.6. Troponin 0.09. White blood count 11.9, hemoglobin 13.7, hematocrit 42.5, platelets 222. Hemoglobin A1c 12.6%. Total aldosterone is 5.4. Plasma metanephrines are negative. Random cortisol was 17.6. Again, a CT scan of the chest was done on 04/12/2019 and was noted for 3.7 x 3.1 x 2.7 cm left adrenal mass with a -6 Hounsfield count as well as a right-sided adrenal mass with Hounsfield count of 7, both likely to represent adrenal adenomas. ASSESSMENT AND PLAN: 1. Hypoglycemia. This is very likely due to the action of glimepiride. It certainly did not help that the patient does not monitoring blood glucose at home to be able to lion such an occurrence. Glimepiride has been on hold since her presentation and the patient has sustained normal glycemia with continued D10 support. I will be tapering her D10 support gradually to avoid fluid overload and will start by going down from 100 mL an hour to 50 mL an hour and maintain hourly blood glucose monitoring as we do so. 2. Type 2 diabetes mellitus. As noted above, the patient was diagnosed with type 2 diabetes mellitus about 2 weeks ago during an admission at that time. Her hemoglobin A1c baseline was elevated at 12.6%. The recommendation at that time was to go home on a combination of metformin and Tradjenta. However, the patient found out of pocket cost for Tradjenta to be beyond her reach and she asks for alternative and her primary care provider, Dr. Grossman prescribed glimepiride 4 mg daily. In of itself, glimepiride is a fairly reasonable choice and has proven to be a safe and effective for many diabetic patients. However, the patient had needed to monitor her blood glucose at home in order to maintain a good balance between adequate glycemic control and avoiding hypoglycemia. Unfortunately, the patient has not started to monitor her blood glucose at home yet and does not have a glucometer as of yet. Furthermore, given this experience of glimepiride, and although this is a reasonable consideration in most diabetic patients, based on her experience, I would avoid the use of sulfonylureas in the future with this patient. I had a lengthy discussion with the patient about her therapeutic options to where we can control her blood glucose values adequately without a high risk of hypoglycemia and to where the cost is accessible. I believe that the most reasonable approach would be to discharge the patient from here eventually on metformin monotherapy and monitor her blood glucose values closely at home for a period of 2-3 weeks, then determine if a second agent is needed or not. In the event that a second agent is needed, her safest yet more affordable option would probably be insulin, which she said that she would not mind per se, if it is cheaper than a DPP-4 inhibitor. I asked for the patient to have her daughter who is her primary caregiver be present tomorrow at noon, so that we can discuss this together and her treatment plan will be finalized upon discharge. [address] [address] CONSULTATION Name: FE BLANK Room #: 214-P [facility] IN M.R.#: [id number] Admission: 04/26/19 Attend Phys: Franko Elmore MD Discharge: Date of : 45 Report #: [id number] 3. Bilateral adrenal masses. When the patient was here 2 weeks ago, a CT scan of the chest accidentally identified bilateral adrenal masses most noted for a dominant 3.7 cm left adrenal mass. The Hounsfield count on these masses is consistent with benign adrenal adenomas bilaterally and her functional adrenal assessment results point the fact that these are likely nonfunctional. Given this favorable outlook, I would advise any radiologic, clinical, biochemical assessments for at least 3 consecutive years to ensure the stability of these lesions. 4. Hyperlipidemia. The patient is maintained on atorvastatin therapy and tolerates it well. She is advised to continue with the same. 5. Hypertension. The patient's level of blood pressure control is adequate on the current regimen of losartan and Norvasc and she is advised to maintain the same. I have revised the patient's clinical care notes, laboratory results, and radiologic data past and present for over 35 minutes. I certainly appreciate this consultation by Dr. Perez. <ELECTRONICALLY SIGNED> By: Dayami Chaney MD 04/27/19 1207 1717 [id number] Dayami Chaney MD /nt
--- NOTE | 2019-04-27 14:06 | NUR ---
Cdiff pending. Should the pt be dc ready over the weekend, staff to contact the oncall RN for [facility] and fax dc summary and instructions. [facility] : phone [phone] and fax [phone]
--- NOTE | 2019-04-27 19:55 | NUR ---
ASSUMED CARE OF PT AT APPROX 0700. PT IS LAERT AND ORIENTED, MONITORED ON TELE AND ABLE TO MAINTAIN 02 SAT >90 ON RA. DENIES PAIN AND SOA. EVEN NOLABORED BREATHING NOTED. ASSESSMENT CHARTED. NO BM THIS SHIFT. IV ANTBX STILL BEING GIVEN. BG STABLE ALL SHIFT. PT DENIES QUESTIONS BUT IS ANXIOUS FOR DC. ACCORDING TO HOSPITALIST PT ON PLAN TO DC TOMORROW. PT AND FAMILY UPDATE. NAD NOTED THIS SHIFT. MAKING GOOD PROGRESS FOR DC TO HOME
[2019-04-28 05:31] VITALS: BP 139/74
[2019-04-28 05:42] LABS: HEMATOCRIT 38.2 % (37.0-47.0); HEMOGLOBIN 12.3 gm/dL (12.0-15.0); MCH 29.7 pg (26.0-34.0); MCHC 32.1 g/dL (28.0-37.0); MCV 92.5 fL (80.0-100.0); RBC 4.13 mil/uL (4.20-5.00); RDW 16.7 % (10.5-14.5); WBC 13.5 thou/uL (4.0-11.0)
[2019-04-28 06:02] LABS: CALCIUM 8.9 mg/dL (8.5-10.1); CREATININE 1.1 mg/dL (0.6-1.0); POTASSIUM 4.3 mmol/L (3.5-5.1)
--- NOTE | 2019-04-28 06:39 | NUR ---
ASSUMED PT CARE AT 1900, PT A&OX4, BP ELEVATED, METOPROLOL GIVEN SCHEDULED, BP STABLE AT THIS TIME, NO COMPLAINS OF PAIN , BLOOD SUGARS STABLE AT THIS TIME, CONTINUES ON IV ABT, RESTED WELL THROUGHOUT THE NIGHT, WILL CONTINUE TO MONITOR
[2019-04-28 07:38] VITALS: BP 160/86
[2019-04-28 11:30] VITALS: BP 191/101
[2019-04-28 16:54] VITALS: BP 145/67
--- NOTE | 2019-04-28 17:57 | NUR ---
ASSUMMED PT CARE AT APPROXIMATELY 0700. PT A&O X4. ASSESSMENT CHARTED. FALL PRECAUTIONS IN PLACE. PT DENIES HAVING CHEST PAIN. PT DENIES HAVING SOB. PT DENIES HAVING ACUTE PAIN. PT AND PT'S FAMILY EDUCATED ABOUT POC. PT AND PT'S FAMILY STATED UNDERSTANDING AND DENIED HAVING FURTHER QUESTIONS. NOTIFIED DR. WALKER ABOUT PT'S ELEVATED BP. DR. WALKER ORDERED NEW MEDS. NEW MEDS IMPLEMENTED. BP STABLE. DR. WALKER ORDERED TO D/C METFORMIN. METFORMIN D/C. DURING AMBULATING C RT, RT STATED PT O2 SAT DROPPED TO 77%. RT STATED PT NEEDED TO USE 2-3 L OF 02 WHEN AMBULATING. PT USING 2L O2 WHEN AMBULATING. O2 SAT STABLE. VITAL SIGNS STABLE. BLOOD SUGARS STABLE. PT COMFORTABLE IN BED. PT DENIES HAVING FURTHER CONCERNS. PT RECEIVED BATH TODAY. PT STEADY WHEN AMBULATING.
[2019-04-28 20:58] VITALS: BP 156/75
[2019-04-29] VITALS (7 sets, daily range): BP systolic 145–179; BP diastolic 63–93
--- NOTE | 2019-04-29 02:52 | NUR ---
ASSESSMENT DOCUMENTED.PT BEEN RESTING IN NO ACUTE DISTRESS.A/OX4.VSS.RA WHILE RESTING.O2 AT 2LITERS PNC WITH AMBULATION AND TOILETING.DYSPNES WITH EXERTION NOTED DURING ACTIVITIES.ABT INFUSED PER ORDERS.NSR ON MONITOR.BLOOD GLUCOSE TREATED PER SS.DENIES PAIN OR ANY DISCOMFORT.BLES ELEVATED D/T EDEMA.POC IS TO DSICHARGE TO HOME W/WO HH.WILL CONT TO MONITOR PER POC.
[2019-04-29 04:49] LABS: CALCIUM 8.8 mg/dL (8.5-10.1); MAGNESIUM 2.1 mg/dL (1.8-2.4); PHOSPHORUS 2.7 mg/dL (2.5-4.9); POTASSIUM 3.9 mmol/L (3.5-5.1)
[2019-04-29 05:09] LABS: ABSOLUTE NEUTROPHILS 9.8 thou/uL (1.4-8.2); BASOPHILS 0.5 % (0.0-2.0); HEMATOCRIT 38.7 % (37.0-47.0); HEMOGLOBIN 12.4 gm/dL (12.0-15.0); LYMPHOCYTES 11.4 % (24.0-44.0); MCH 29.5 pg (26.0-34.0); MCHC 31.9 g/dL (28.0-37.0); MCV 92.4 fL (80.0-100.0); MONOCYTES 3.4 % (1.0-8.0); PLATELET COUNT 199 thou/uL (150-400); POLYS 83.7 % (36.0-66.0); RBC 4.19 mil/uL (4.20-5.00); RDW 16.6 % (10.5-14.5); WBC 11.7 thou/uL (4.0-11.0)
--- NOTE | 2019-04-29 21:05 | NUR ---
ASSUMMED PT CARE AT APPROXIMATELY 0700. PT A&O X4. ASSESSMENT CHARTED. FALL PRECAUTIONS IN PLACE. PT DENIES HAVING CHEST PAIN. PT DENIES HAVING SOB. PT DENIES HAVING ACUTE PAIN. PT VITAL SIGNS STABLE. PT BLOOD SUGARS STABLE. RT STATED PT QUALIFIED FOR O2 AT HOME WHEN AMBULATING. NOTIFIED DR. WALKER OF CHEST X-RAY RESULTS. NOTIFIED DR. WALKER OF PT'S URINE RESIDUAL BEING [address] WALKER STATED NO NEW ORDERS. PT AND PT'S FAMILY EDUCATED ABOUT POC. PT AND PT'S FAMILY STATED UNDERSTANDING AND DENIED HAVING FURTHER QUESTIONS. PT COMFORTABLE IN CHAIR. PT DENIES HAVING FURTHER CONCERNS.
[2019-04-30 03:46] VITALS: BP 145/78
[2019-04-30 05:32] LABS: ABSOLUTE NEUTROPHILS 9.2 thou/uL (1.4-8.2); BASOPHILS 0.5 % (0.0-2.0); EOSINOPHILS 0.4 % (0.0-3.0); HEMOGLOBIN 13.2 gm/dL (12.0-15.0); LYMPHOCYTES 13.4 % (24.0-44.0); MCH 29.2 pg (26.0-34.0); MCHC 32.3 g/dL (28.0-37.0); MCV 90.5 fL (80.0-100.0); MONOCYTES 4.9 % (1.0-8.0); PLATELET COUNT 223 thou/uL (150-400); POLYS 80.8 % (36.0-66.0); RBC 4.53 mil/uL (4.20-5.00); RDW 15.9 % (10.5-14.5); WBC 11.4 thou/uL (4.0-11.0)
[2019-04-30 05:48] LABS: ALBUMIN 2.6 g/dL (3.4-5.0); DIRECT BILIRUBIN 0.2 mg/dL (<0.1-0.2); TOTAL BILIRUBIN 0.5 mg/dL (<0.1-1.0); TOTAL PROTEIN 6.2 g/dL (6.4-8.2)
[2019-04-30 05:51] LABS: CALCIUM 9.4 mg/dL (8.5-10.1); MAGNESIUM 1.8 mg/dL (1.8-2.4); PHOSPHORUS 3.3 mg/dL (2.5-4.9); POTASSIUM 3.4 mmol/L (3.5-5.1)
[2019-04-30 08:00] VITALS: BP 175/81
[2019-04-30 12:39] VITALS: BP 148/69
[2019-04-30 16:00] VITALS: BP 155/65
--- NOTE | 2019-04-30 19:25 | NUR ---
ASSESSMENT CHARTED. PT ALERT AND ORIENTED. VSS. UP IN THE CHAIR THIS SHIFT. EVALUATED BY PT/OT. FAMILY UPDATED ON PT'S PROGRESS. NO CONCERNS AT THIS TIME. WILL CONTINUE TO MONITOR.
[2019-04-30 20:05] VITALS: BP 156/77
[2019-05-01 04:30] VITALS: BP 146/76
--- NOTE | 2019-05-01 05:45 | NUR ---
ASSUMED PT CARE AT 1900, PT ALERT AND ORIENTEDX3 WITH FORGETFULLNESS, VITAL SIGNS STABLE, SR ON THE MONITOR, CONTINUES ON IV ABT, NO ADVERSE REACTIONS NOTED, ASSESSMENTS CHARTED, RESTED WELL THROUGHOUT THE NIGHT, WILL CONTINUE TO MONITOR
[2019-05-01 08:00] VITALS: BP 170/93
--- NOTE | 2019-05-01 08:26 | NUR ---
Met with patient and sp with dtr. Padmini nicholas and dtr present she reports cont plan for home with HH. She does not feel her mother needs post acute care. updated [facility].
[2019-05-01 12:16] VITALS: BP 158/64
[2019-05-01] MEDS ORDERED: IPRAT-ALBUT 0.5-3 ML INH (13:39)
[2019-05-01] MEDS ORDERED: CEFUROXIME500 MG PO (13:39)
[2019-05-01] MEDS ORDERED: AMLODIPINE BESY10 MG PO (13:39)
[2019-05-01] MEDS ORDERED: SPIRONOLACTONE25 M1 PO (13:39)
[2019-05-01] MEDS ORDERED: FLAGYL500 M1 PO (13:39)
[2019-05-01] MEDS ORDERED: GLUCOPHAGE XR750 MG PO (13:39)
[2019-05-01] MEDS ORDERED: METOPROLOL SUCC50 MG PO (13:39)
[2019-05-01] MEDS ORDERED: ACETAMINOPHEN325 M1 PO (13:39)
--- NOTE | 2019-05-01 14:46 | NUR ---
faxed to [facility] D/C order, D/C Summary, H&P. Per Catie current Patient will call if need anything else. Fax complete.
--- NOTE | 2019-05-01 16:38 | NUR ---
ASSESSMENT CHARTED. PT ALERT AND ORIENTED. VSS. DENIED HAVING PAIN OR DISCOMFORT. SEEN BY DR. CHINO. ORDERS GIVEN TO DISCHARGE PT TO HOME WITH HH. DAUGHTER NOTIFIED. PT UP IN THE CHAIR AT THIS TIME WAITING TO PICKED UP BY THE DAUGHTER.
== END 2019-05-01 17:45 | disposition home health service (06) | DRG 444 ==
LOC: ER 21:34 → EROBS 04-26 03:25 → 2N 04-26 03:25 → ENTRNSPT 05-01 17:35 → 2N 05-01 17:45
PROVIDERS: Emergency Medicine; Internal Medicine; Nurse Practitioner Acute Care; ADMIT Internal Medicine
DX: K80.00 Calculus of gallbladder with acute cholecystitis without obstruction (principal); J96.01 Acute respiratory failure with hypoxia; J18.9 Pneumonia, unspecified organism; J44.1 Chronic obstructive pulmonary disease with (acute) exacerbation; J44.0 Chronic obstructive pulmonary disease with (acute) lower respiratory infection; I50.32 Chronic diastolic (congestive) heart failure; E11.649 Type 2 diabetes mellitus with hypoglycemia without coma; I16.0 Hypertensive urgency; M81.0 Age-related osteoporosis without current pathological fracture; I11.0 Hypertensive heart disease with heart failure; M19.90 Unspecified osteoarthritis, unspecified site; E27.9 Disorder of adrenal gland, unspecified; E78.5 Hyperlipidemia, unspecified; E87.6 Hypokalemia; Z60.2 Problems related to living alone; E66.01 Morbid (severe) obesity due to excess calories; Z79.82 Long term (current) use of aspirin; Z90.710 Acquired absence of both cervix and uterus; Z87.891 Personal history of nicotine dependence; Z68.33 Body mass index [BMI] 33.0-33.9, adult; Z79.899 Other long term (current) drug therapy
CPT/HCPCS: 10081

== ENCOUNTER 2019-07-08 15:33 | Inpatient (IN) | payer OTHER ==
[~2019-07-08] VITALS: Ht 160 cm; Wt 78.0 kg
[2019-07-08 15:33] VITALS: BP 192/89
[~2019-07-08 15:33] MED LIST changes: +ACETAMINOPHEN325 M1 PO; +AMLODIPINE BESY10 MG PO; +CEFUROXIME500 MG PO; +DIOVAN160 MG PO; +FLAGYL500 M1 PO; +FOSAMAX 70 MG T70 MG PO; +GLIMEPIRIDE4 MG PO; +IPRAT-ALBUT 0.5-3 ML INH; +KLOR-CON M2020 MEQ PO; +METOPROLOL SUCC50 MG PO; +SPIRONOLACTONE25 M1 PO
[2019-07-08] MEDS ORDERED: TRAMADOL 50 MG50 MG PO (16:11)
[2019-07-08] MEDS ORDERED: FUROSEMIDE 40 M40 MG PO (16:12)
[2019-07-08] MEDS ORDERED: COREG12.5 MG PO (16:12)
[2019-07-08 16:13] LABS: ABSOLUTE NEUTROPHILS 11.9 thou/uL (1.4-8.2); BASOPHILS 0.6 % (0.0-2.0); EOSINOPHILS 0.5 % (0.0-3.0); HEMATOCRIT 41.1 % (37.0-47.0); HEMOGLOBIN 13.1 gm/dL (12.0-15.0); LYMPHOCYTES 11.7 % (24.0-44.0); MCH 29.1 pg (26.0-34.0); MCHC 31.8 g/dL (28.0-37.0); MCV 91.6 fL (80.0-100.0); MONOCYTES 3.3 % (1.0-8.0); PLATELET COUNT 323 thou/uL (150-400); POLYS 83.9 % (36.0-66.0); RBC 4.49 mil/uL (4.20-5.00); RDW 16.4 % (10.5-14.5); WBC 14.2 thou/uL (4.0-11.0)
[2019-07-08] MEDS ORDERED: GLIPIZIDE 10 MG10 MG PO (16:13)
[2019-07-08 16:23] LABS: CALCIUM 10.4 mg/dL (8.5-10.1); CREATININE 1.4 mg/dL (0.6-1.0); POTASSIUM 3.4 mmol/L (3.5-5.1)
[2019-07-08 16:28] LABS: ALBUMIN 2.2 g/dL (3.4-5.0); DIRECT BILIRUBIN 0.4 mg/dL (<0.1-0.2); TOTAL BILIRUBIN 0.7 mg/dL (<0.1-1.0); TOTAL PROTEIN 9.1 g/dL (6.4-8.2)
[2019-07-08 17:18] VITALS: BP 158/64
[2019-07-08 20:01] VITALS: BP 150/60
[2019-07-08 20:24] VITALS: BP 159/75
--- NOTE | 2019-07-08 23:09 | NUR ---
PATIENT ARRIVED FROM ED VIA CART AT 2205. ALERT AND ORIENTED X4. NO C/O PAIN. NO ONE WITH PATIENT TO ROOM, HOWEVER, FAMILY WAS IN ED. NO IVF. BS 84 AND SNACK WAS GIVEN. WILL MONITOR.
--- NOTE | 2019-07-09 03:43 | NUR ---
PATIENT ALERT AND ORIENTED X4. EDEMA GENERALIZED MOSTLY TO LOWER EXTREMETIES. 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 ADMITS TO WEAKNESS. GRIEVING DUE TO THE LOSS OF HER [id number] A MONTH AGO. STATED THAT A FORGING ENGINEER COULD VISIT. BS UPON ARRIVAL TO FLOOR WAS 84 AND PATIENT HAD A SNACK THIS WAS UP FROM 38 UPON ARRIVAL TO THE ED VIA AMBULANCE. DENIES PAIN. PATIENT SAID SHE HAS TROUBLE VOIDING AT TIMES, GIVEN PO LASIX WITH NO RESULTS AT TIME OF NOTE. NO WOUNDS. RESTING QUIETLY. WILL MONITOR.
[2019-07-09 04:53] LABS: URINE BILIRUBIN NEGATIVE (Negative); URINE BLOOD TRACE (Negative); URINE CLARITY CLEAR; URINE COLOR YELLOW; URINE GLUCOSE-RANDOM* NEGATIVE (Negative); URINE KETONES NEGATIVE (Negative); URINE LEUKOCYTES-REFLEX NEGATIVE (Negative); URINE NITRITE-REFLEX NEGATIVE (Negative); URINE PROTEIN (DIPSTICK) 1+ (Negative)
--- NOTE | 2019-07-09 04:55 | NUR ---
PATIENT VOIDED 300ML PER BEDPAN. BLADDER SCAN SHOWED 24ML RESIDUAL. PATIENT RESTING QUIETLY.
[2019-07-09 05:04] LABS: AMORPHOUS URATES Few /LPF (None Seen); FINE GRANULAR CASTS 0-3 Few /LPF (None Seen); HYALINE CASTS 4-10 Moderate /LPF (None Seen); MUCUS 0-3 Light strn/LPF (None Seen); SQUAMOUS 4-10 Moderate /LPF (0-3)
[2019-07-09 05:05] LABS: BACTERIA-REFLEX None Seen /HPF (None Seen); CRYSTALS None Seen /LPF (None Seen); URINE RBC 0-2 Rare /HPF (0-2); URINE WBC-REFLEX None Seen /HPF (0-5)
[2019-07-09 08:36] VITALS: BP 172/79
--- NOTE | 2019-07-09 10:18 | NUR ---
Nutrition: Assessed due to consult received for weight change. Admit: hypoglycemia. Hx DM II. Pt denied any nutrition concerns or questions. Reports a great, stable appetite most days. Did not mention any wt change/loss, but RD inquired re: leg swelling. Pt w/ edema to both lower extremities, on Lasix BID. Wt is likely to fluctuate while on diuretic and anticipate some wt loss. Largest wt gain between Mar and Apr going from 167# to 186# by 04/26/19. Down to 175# per 04/30 wt entry and 172# this admit. Still up +5# from [facility] in in Mar 2019. Educated on hypoglycemia s/s and how to treat at home in event it happens again. Pt no longer on glipizide med, per latest MD note, plan to restart metformin at home in a few days. Following education, no further needs per pt. Most recent BGs staying 70-123 mg/dl. Low nutrition risk.
[2019-07-09 10:21] VITALS: BP 172/79
--- NOTE | 2019-07-09 12:05 | NUR ---
INITIAL ASSESSMENT/DISCHARGE NOTE: JOANNA reviewed chart and spoke with nursing and attending physician. Pt was admitted from home due to hypoglycemia. Pt is medically stable for discharge home today. SW met with pt at bedside. Introduced role of SW. Pt is alert/orientated x 4. Pt states she lives at home with her dtr, Albertina. Prior to admission, pt was using a cane/walker for ambulation. Pt is currently on service with , but unable to recall name of agency. Pt's PCP is Dr. Cosme Gonzalez. JOANNA spoke with pt's dtr, Albertina, via phone. Pt is currently on service with [facility]. Pt to discharge home today and resume services. SW faxed info and orders to [facility] and notified Sonia in intake. Pt's family to provide transportation home later today. No additional SW needs identified at this time, but is available to assist should needs arise.
--- NOTE | 2019-07-09 15:39 | NUR ---
ASSUMED CARE OF PATIENT AT 0715, PATIENT ALERT AND ORIENTED X 4. UP WITH MAX ASSIST X 1 WITH GB AND WALKER. PATIENT DENIES PAIN THIS AM. PATIENT HAS LEFT AC IV IN PLACE, SHE HAS EDEMA TO LOWER EXTREMITIES, SHE RECEIVED LASIX 40 MG PO X 1 THIS SHIFT. PATIENT BS THIS AM 70, JUICE AND CRACKERS GIVEN, BREAKFAST ARRIVED. BLOOD SUGAR RECHECKED AT 1000, BS 137. LUNCH BLOOD SUGAR 150, 4 UNITS OF INSULIN GIVEN WITH LUNCH. DR WOODSON HERE THIS AM, WILL DISCHARGE TO HOME THIS AFTERNOON. LEFT AC IV REMOVED PRIOR TO DISCHARGE. THIS RN WENT OVER ALL DISCHARGE PAPERWORK AND ALL PERSONAL BELONGINGS SENT WITH THE PATIENT AND DAUGHTER.
--- NOTE | 2019-07-09 15:40 | EKG ---
[facility] Antonette Aceves [employer] [id number] ELECTROCARDIOGRAM REPORT Name: FE BLANK Room #: 403-P ADM IN M.R.#: [id number] Admission: 07/08/19 Attend Phys: Suraj Wilson Discharge: Date of : 45 Report #: [id number] THIS REPORT FOR: cc: RONEL - [place] family physician/PCP RONEL - [place] family physician/PCP Alejo Orellana MD [facility] THIS REPORT FOR: //name// [facility] ED Test Date: 2019-07-08 Test Time: 15:35:12 Pat Name: FE BLANK Department: Room: [facility] Gender: F Director Compliance: [place] : 1945 Requested By: Aleksandar Perez Order Number: [id number] MD: Alejo Orellana Measurements Intervals Ivins Rate: 83 P: 26 MO: 112 QRS: -28 QRSD: 106 T: 124 QT: 396 QTc: 466 Interpretive Statements Sinus rhythm Borderline short MO interval LVH with secondary repolarization abnormality Poor R wave progression Baseline wander in lead(s) V2 Compared to ECG 04/13/2019 09:22:02 No significant change was found Electronically Signed On 07-09-2019 15:39:11 CDT by Alejo Orellana [email or web address] <ELECTRONICALLY SIGNED> By: Alejo Orellana MD, FAC 07/09/19 1539 [id number] Alejo Orellana MD, FACC /EPI
--- NOTE | 2019-07-09 16:40 | NUR ---
FAXED DC ORDERS/SUMMARY TO [facility] RECEIVED CONFIRMATION THEY WILL NOTIFY PT TIME OF VISITS.
== END 2019-07-09 15:00 | disposition home health service (06) | DRG 639 ==
LOC: ER 15:33 → 4N 17:16 → EROBS 17:16 → 4N 20:01
PROVIDERS: Emergency Medicine; ADMIT Hospitalist
DX: E11.649 Type 2 diabetes mellitus with hypoglycemia without coma (principal); T38.3X5A Adverse effect of insulin and oral hypoglycemic [antidiabetic] drugs, initial encounter; I10 Essential (primary) hypertension; M81.0 Age-related osteoporosis without current pathological fracture; M19.90 Unspecified osteoarthritis, unspecified site; R32 Unspecified urinary incontinence; Z79.84 Long term (current) use of oral hypoglycemic drugs; Y92.89 Other specified places as the place of occurrence of the external cause; Z90.710 Acquired absence of both cervix and uterus; Z79.82 Long term (current) use of aspirin; Z79.899 Other long term (current) drug therapy; Z88.8 Allergy status to other drugs, medicaments and biological substances; Z87.891 Personal history of nicotine dependence
CPT/HCPCS: 10091